=== PATIENT | female | born 1955 | race Caucasian/White ===

== ENCOUNTER → 2016-12-11 | Day surgery (SDC) | payer MEDICARE, MEDICAID ==
[2016-12-11] VITALS (10 sets, daily range): BP systolic 110–157; BP diastolic 57–96; PULSE 66–83; RESP 11–25; O2SAT 93–100
[~2016-12-11] VITALS: Ht 172.7 cm; Wt 152.1 kg
[~2016-12-11] MED LIST: AZU500 PO; CYCL5TAB PO; CeFAZolin 2 Gm/50 mL D5W IV Premix IV ONE; CeFAZolin Inj 3 GM in IV Premix IV ONE; Dexamethasone 4 mg/mL Inj IVPUSH PRN; EPHEDrine Sulfate 50 mg/mL Inj IVPUSH PRN; FUR20 PO; GABA600T2 PO; HYDR200T5 PO; HYDROmorphone 1 mg/mL Inj IVPUSH PRN; LEFL20TA18 PO; Lactated Ringer's 1,000 ML IV SCH; Lactated Ringer's 500 ML IV PRN; Lidocaine 1%-Epi 1:100,000 20 mL Inj NERVEBLOCK ONE; MetoCLOpramide 5 mg/mL 2 mL Inj IVPUSH PRN; OXYB5TAB10 PO; OXYC5TAB72 PO; Ondansetron 2 mg/mL 2 mL Inj IVPUSH PRN; Ondansetron 2 mg/mL 2 mL Inj ONE; POTA10TA12 PO; Phenylephrine 10,000 mCg/mL Inj IVPUSH PRN; Propofol 10,000 mCg/mL 20 mL Inj ONE; RANI150C4 PO; Succinylcholine Chloride 20 mg/mL 5 mL Inj ONE; THIO300C PO; TRAM50TA2 PO; fentaNYL-PF 50 mCg/mL 2 mL Inj IVPUSH PRN; fentaNYL-PF 50 mCg/mL 2 mL Inj ONE; vitamin d2
[2016-12-11] MEDS: Lactated Ringer's 1,000 ML IV SCH ×2 (07:55→09:39)
--- NOTE | 2016-12-11 09:37 | PCM.HPANE ---
Patient Data Surgeon Admitting Provider: Attending Provider:Huber Valdivia DO Primary Care Physician:Chapo Phillips MD Other Provider:Shlomo Moreno Anesthesia Reason for Visit Left Cubital Tunnel Syndrome Ht/WT & BMI Height (Feet): 5 Height (Inches): 8 Weight (Kilograms): 152.1 Body Mass Index 50.00 Allergies Coded Allergies: acetaminophen (Verified Adverse Reaction, Severe, GI UPSET with severe nausea/emesis, 07/07/16) Uncoded Allergies: SEAFOOD (Adverse Reaction, Severe, GI UPSET (NO PROBLEMS W/ IODINE), 05/23/16 ) WINE (Adverse Reaction, Severe, GI UPSET, 05/23/16) Past Anesthesia History Anesthesia History: Denies:: Abnormal Airway, Anesthesia Reactions, Difficult Intubation, Fam Anesthesia Reaction, Malignant Hyperthermia Diabetes History Hx Diabetes?: No MRSA MRSA: No Medications Hypertension Medication: Yes Home Meds Incl Beta Aliyah: No Reported Medications Cyclobenzaprine 5 Mg [id number] Mg PO TID PRN Spasm 12/11/16 [vitamin d2] No Conflict Check50,000 Weekly 11/04/16 Tramadol 50 Mg [id number] Mg PO BID PRN For Pain Ref 0 11/04/16 Sulfasalazine 500 Mg Tablet1,500 Mg PO BID 30 Days Ref 0 11/04/16 Ranitidine 150 Mg [id number] Mg PO BID Ref 0 11/04/16 Potassium Chloride ER 10 Meq [id number] Meq PO DAILY Ref 0 TAKE WITH FOOD 11/04/16 oxyCODONE 5 Mg Tablet5 Mg PO BID PRN For Pain Ref 0 11/04/16 Oxybutynin Chloride 5 Mg Tablet5 Mg PO BID Ref 0 11/04/16 Leflunomide 20 Mg [id number] Mg PO DAILY 11/04/16 Hydroxychloroquine Sulfate 200 Mg [id number] Mg PO DAILY 30 Days Ref 0 11/04/16 Gabapentin 600 Mg [id number] Mg PO BID Ref 0 11/04/16 Furosemide 20 Mg Tab20 Mg PO BID 30 Days Ref 0 11/04/16 Alpha Lipoic Acid 300 Mg [id number] Mg PO BID 11/04/16 History History of ENT Problems?: Yes HEENT History: Positive for:: Cataracts (bilateral) Hearing Problem Denies:: Abnormal Airway Difficult Intubation Dysphagia Glaucoma Sinus Problem TMJ Denture Type: Full- Upper Full- Lower Teeth Condition: Missing Teeth Hx of Heart Problems?: Yes Cardiovascular History: Positive for:: Edema (hx of lymphedema, calves only) Hypertension Denies:: Irregular Heartbeat Hx of Respiratory Problem?: Yes Respiratory History: Positive for:: Use of C-PAP Machine Denies:: Asthma COPD Emphysema Pneumonia Tuberculosis Use of Inhalers / NEBS Hx Neurologic Problems?: Yes Neurological History: Denies:: CVA Dementia Headaches Multiple Sclerosis Parkinson's Disease Seizures Other Neurological Pertinent: peripheral polyneuropathy Hx of GI Problems?: Yes Gastrointestinal History: Positive for:: Gall Bladder Disease (removed) Gastroesphageal Reflux (on ranitidine) Heartburn Hepatitis (hep a as child ) Denies:: Hiatal Hernia Liver Disease Rectal Bleeding Hx of Problems?: Yes Female Hx: Denies:: Currently (left tubal ovarian ) Problems with Breasts? Skin History: Denies:: History Skin Disorders? Pressure Ulcers Hx Musculoskeletal Problems?: Yes Musculoskeletal History: Positive for:: Degenerative Joint Musculoskeletal Trauma (left cubital tunnel syndrome current admission hx) Osteoarthritis Rheumatoid Arthritis Denies:: Back Injury Joint Replacement Myasthenia Gravis Systemic Lupus Hx of Psycho/Social Problems?: Yes Psycho Social History: Positive for:: Anxiety Hx Depression Hx Surgeries?: Yes (C/S,CONE BX,DX LAP,TONSILS, sural nerve bx) Hx Any Other Health Problems?: Yes Other History: Denies:: Cancer (pre cervical ) Endocrine Disease Hospitalization Thyroid Disease History Blood Transfusions: Positive for:: Accept Blood Products? Denies:: Blood Transfusions Hx Diabetes: No Hx Alcohol Use: No (not for 10 years)Hx Substance Use: No Smoking Status: Current Every Day Smoker Have You Smoked inLast 12 mo: Yes (trying to quit, down to 1 cig day) Stop/Bang S-Snoring: Do You Snore Loudly: No T-Tired: feel tired, fatigued: No O-Obsered: Observed not breath: Yes P-Blood Pressure: treated: Yes B- Body Mass Index > 35 kg/m2: Yes A- Age over 50: Yes N- Neck Large Circumference: Yes G- Gender Male: No HALIMA Total Score: 5 HALIMA Risk Assessment: High Risk, =/>3 Yes Risk Assessment Category Category 1A: Patient has history of documented sleep apnea, and HAS NOT received any narcotic, sedative or anesthesia administration during this stay. Category 1B: Patient has history of documented sleep apnea, and HAS received any narcotic , sedative or anesthesia administration during this stay Category 2: Patient has SUSPECTED Obstructive Sleep Apnea, and HAS received any narcotic , sedative or anesthesia administration during this stay. Category 3: Patient has SUSPECTED Obstructive Sleep Apnea and HAS NOT received narcotic, sedative or anesthesia administration during this stay. Category 4: Outpatient in Procedural Areas with known sleep apnea or who screen positive for High Risk via the STOP/BANG questionnaire. Exam Exam Vital Signs Vital Signs Date Time Temp Pulse Resp B/P Pulse Ox O2 Delivery O2 Flow Rate FiO2 12/11/16 08:12 36 75 18 152/84 94 Room Air General Appearance: Alert HEENT/AIRWAY: MP 2 Lungs: Clear to Auscultation Heart: Exam Unremarkable Meds/Labs/Diagnostics Admission Meds Current Medications Lactated Ringer's (Lr) 1,000 ml @ 120 mls/hr Q8H20M IV Last administered on t 07:55; Start 12/11/16 at 05:00; Stop 12/11/16 at 13:19 Plan Impression Patient chart reviewed, patient interviewed and anesthestic plan with risks, benefits, and alternatives discussed, and informed consent obtained. NPO Status: 12/11/16 [facility] [place] 0400 ASA Physical Status: ASA3 Severe Disease Anesthetic Support Modalities: Geraldine Scope, Hemodynamic Monitoring Anesthetic Plan: GA Bene/Risks/Altern/Consents: Yes HP Complete Prior to Induction: Yes Torres Orellana MD Dec 11, 2016 09:37
--- NOTE | 2016-12-11 11:30 | PCM.ANEP1 ---
Post Anesthesia Phase 1 PACU Phase 1 Assessment Vital Signs Vital Signs Date Time Temp Pulse Resp B/P Pulse Ox O2 Delivery O2 Flow Rate FiO2 12/11/16 11:15 36.4 70 15 123/68 95 Room Air 12/11/16 11:05 66 19 140/96 100 Room Air 12/11/16 11:00 71 18 157/89 99 Room Air 12/11/16 10:55 75 22 152/88 99 Room Air 12/11/16 10:50 76 25 151/89 99 Simple Mask 8 12/11/16 10:48 36.8 76 25 153/88 99 Simple Mask 8 12/11/16 08:12 36 75 18 152/84 94 Room Air Anesthetic Administered: GA Level of Alertness: Awake, talking CLAROS's with Equal Strength: Yes Pain: No Nausea or Vomiting: No Airway Device: Endotrachial Tube Oxygen Delivery: Simple Mask Lungs: Clear to Auscultation Dermatome Level: Full Sensation Torres Orellana MD Dec 11, 2016 11:30
--- NOTE | 2016-12-11 11:31 | PCM.ANEP2 ---
Post Anesthesia Evaluation ASA/CMS Post Anesthesia VS in Patient's Normal Range?: Yes Resp Stable; Airway Patent?: Yes CV Function & Hydration Stable: Yes Mental Status Recovered?: Yes Pain control Satisfactory?: Yes N/V Control Satisfactory?: Yes Early,Torres Vargas MD Dec 11, 2016 11:31
--- NOTE | 2016-12-11 15:10 | OP ---
[address] [address] OPERATIVE REPORT PATIENT: CRISTY BOLAÑOS : 1955 MR#: [id number] ADMIT: 12/11/2016 JOB ID: [id number] DATE OF SURGERY: 12/11/2016 PREOPERATIVE DIAGNOSIS(ES): Left cubital tunnel syndrome. POSTOPERATIVE DIAGNOSIS(ES): Left cubital tunnel syndrome. PROCEDURE: Left cubital tunnel decompression. SURGEON: Huber Valdivia D.O. ANESTHESIA: General. HISTORY: The patient is a pleasant 61-year-old female, who presents with a longstanding history of left ring and small finger numbness and tingling. She had failed conservative treatment for a cubital tunnel syndrome. She also did have an underlying neurologic disorder. She had a previous biopsy from one of the nerves in her lower extremities that did show some neuropathy. The patient was explained the risks, benefits, alternatives and indications to proceed with decubitus tunnel decompression versus ulnar nerve transposition pending disability of the ulnar nerve intraoperatively. She understood the risks include, but not limited to, neurovascular injury, tendon injury, infection, failure to resolve the patient of her preoperative symptoms, stiffness, persistent pain which may require further intervention. The patient had all questions answered. Consent was signed and placed in the chart. PROCEDURE IN DETAIL: The patient was brought to the operative suite and placed supine on the operating table. Surgical time-out was performed. Everyone in the room was in agreement. After appropriate anesthesia was obtained, a left upper arm tourniquet was applied, and the left upper extremity was prepped and draped in a sterile fashion. Left upper extremity was then exsanguinated and tourniquet inflated to 250 mmHg. A curvilinear incision was made along the course of the ulnar nerve at the level of the cubital tunnel. Dissection was carried down to the cubital tunnel taking care to protect any branches of the medial and antebrachial cutaneous nerve. The ulnar nerve was identified as far proximal to the level of the medial intermuscular septum and as far distal to include the deep fascia of the flexor carpi ulnaris. There was significant compression at the level just posterior to the medial epicondyle with an hourglass deformity appreciated to the ulna. The elbow was brought through a full functional range of motion. No subluxation was appreciated. Copious irrigation was performed followed by closure of the subcutaneous tissues with 3-0 Vicryl in a running 3-0 nylon for the skin. The patient was then placed in a bulky soft dressing. ESTIMATED BLOOD LOSS: Less than 1 cc. COMPLICATIONS: None. DISPOSITION: The patient tolerated the procedure well. Anesthesia was reversed. The patient was transferred back to recovery. POSTOPERATIVE PLAN: The patient followup in office in two weeks. We will remove the patient's sutures at that time and have her start working on range of motion and scar mobilization.
== END | disposition home or self-care (01) ==
LOC: SAS 07:27
PROVIDERS: ATTEND Orthopaedic Surgery
DX: G56.22 Lesion of ulnar nerve, left upper limb (principal); I10 Essential (primary) hypertension; M06.9 Rheumatoid arthritis, unspecified; M79.7 Fibromyalgia; F41.8 Other specified anxiety disorders; E55.9 Vitamin D deficiency, unspecified; G47.30 Sleep apnea, unspecified; G62.89 Other specified polyneuropathies; F17.210 Nicotine dependence, cigarettes, uncomplicated
CPT/HCPCS: 64718; J0330; J0690; J2405; J3010; J7120